=== PATIENT | female | born 2000 ===

== ENCOUNTER → 2022-12-10 16:35 | Outpatient (CLI) | payer OTHER, SELFPAY ==
--- NOTE | ~2022-12-10 | XR_ITS ---
EXAM: XR lumbar spine 2-3V DATE: 12/10/2022 16:54 HISTORY: SI joint pain, LBP . COMPARISON: None available. FINDINGS: 5 nonrib-bearing lumbar-type vertebral bodies. Mild lumbar scoliosis. Pedicles intact. Nor mal vertebral body alignment. Vertebral body heights preserved. Disc spaces maintained. Normal facets and posterior elements. No fracture or dislocation. IMPRESSION: Mild lumbar scoliosis. Reviewed, dictated and finalized at location K. IMPRESSION: Mild lumbar scoliosis.
--- NOTE | ~2022-12-10 | XR_ITS ---
EXAM: XR pelvis 1-2V DATE: 12/10/2022 16:55 HISTORY: SI joint pain, LBP . COMPARISON: None available. FINDINGS: Normal mineralization. No fracture or dislocation. No lytic or blastic lesion. Joint space s are maintained. No erosion or periosteal change. Soft tissues within normal limits. IMPRESSION: Normal pelvic radiograph findings. Reviewed, dictated and finalized at location K.
== END ==
PROVIDERS: PCP Chiropractor; Visit Provider Chiropractor
DX: M53.3 Sacrococcygeal disorders, not elsewhere classified (principal); M54.50 Low back pain, unspecified; M41.9 Scoliosis, unspecified
CPT/HCPCS: 72100; 72170